=== PATIENT | female | born 1950 | race African-American/Black ===

== ENCOUNTER → 2018-05-19 | Outpatient (CLI) | payer OTHER ==
[2018-05-19 15:50] LABS: BASO % 1 % (0-3); EOS # 0.2 x10^3/uL (0.0-0.7); EOS % 3 % (0-3); HEMATOCRIT 44.6 % (36.0-47.0); LYMPH # 2.4 x10^3/uL (1.0-4.8); LYMPH % 36 % (24-48); MEAN CORPUSCULAR HEMOGLOBIN 28 pg (25-35); MEAN CORPUSCULAR HGB CONC 34 g/dL (31-37); MEAN CORPUSCULAR VOLUME 85 fL (79-100); MONO # 0.5 x10^3/uL (0.0-1.1); MONO % 7 % (0-9); NEUT # 3.5 x10^3uL (1.8-7.7); NEUT % 53 % (31-73); PLATELET COUNT 263 x10^3/uL (140-400); RED BLOOD COUNT 5.28 x10^6/uL (3.50-5.40); RED CELL DISTRIBUTION WIDTH 15.1 % (11.5-14.5); WHITE BLOOD COUNT 6.6 x10^3/uL (4.0-11.0)
[2018-05-19 16:02] LABS: ALBUMIN 4.4 g/dL (3.4-5.0); CALCIUM 9.5 mg/dL (8.5-10.1); CREATININE 0.9 mg/dL (0.6-1.0); POTASSIUM 4.3 mmol/L (3.5-5.1); TOTAL BILIRUBIN 0.2 mg/dL (0.2-1.0); TOTAL PROTEIN 8.8 g/dL (6.4-8.2)
[2018-05-19 16:03] LABS: CHOLESTEROL/HDL RATIO 5.3
[2018-05-19 16:09] LABS: FREE T4 0.75 ng/dL (0.76-1.46); THYROID STIM HORMONE (TSH) 2.587 uIU/mL (0.358-3.74)
[2018-05-21 11:15] LABS: HCV ULTRA QUANT PCR HCV Not Detected IU/mL (.)
== END | disposition home or self-care (01) ==
LOC: LAB 15:05
DX: Z01.411 Encounter for gynecological examination (general) (routine) with abnormal findings (principal); B18.2 Chronic viral hepatitis C; Z20.2 Contact with and (suspected) exposure to infections with a predominantly sexual mode of transmission
CPT/HCPCS: 80053; 80061; 84439; 84443; 85025; 86592; 86703; 86705; 86709; 86803; 87340; 87521

== ENCOUNTER 2018-12-08 00:22 | Emergency (ER) | payer OTHER ==
[~2018-12-08] VITALS: Ht 154.9 cm; Wt 72.6 kg
[2018-12-08 00:46] LABS: BASO # 0.1 x10^3/uL (0.0-0.2); BASO % 1 % (0-3); EOS # 0.1 x10^3/uL (0.0-0.7); EOS % 2 % (0-3); HEMOGLOBIN 13.3 g/dL (12.0-15.5); LYMPH # 3.3 x10^3/uL (1.0-4.8); LYMPH % 38 % (24-48); MEAN CORPUSCULAR HEMOGLOBIN 27 pg (25-35); MEAN CORPUSCULAR HGB CONC 33 g/dL (31-37); MEAN CORPUSCULAR VOLUME 85 fL (79-100); MONO # 0.7 x10^3/uL (0.0-1.1); MONO % 8 % (0-9); NEUT # 4.3 x10^3uL (1.8-7.7); NEUT % 51 % (31-73); PLATELET COUNT 222 x10^3/uL (140-400); RED BLOOD COUNT 4.86 x10^6/uL (3.50-5.40); RED CELL DISTRIBUTION WIDTH 14.3 % (11.5-14.5); WHITE BLOOD COUNT 8.5 x10^3/uL (4.0-11.0)
[2018-12-08] MEDS ORDERED: UNABLE MC (00:50)
[2018-12-08] MEDS ORDERED: MOME13HF IH (00:51)
[2018-12-08] MEDS ORDERED: ALBU2.5V8 INH (00:51)
[2018-12-08] MEDS ORDERED: ALBU2.5V8 IH (00:52)
[2018-12-08] MEDS ORDERED: TIOT18CA IH (00:52)
[2018-12-08 01:00] LABS: CALCIUM 9.6 mg/dL (8.5-10.1); CREATININE 0.7 mg/dL (0.6-1.0); GFR 101.3; POTASSIUM 3.8 mmol/L (3.5-5.1)
[2018-12-08] MEDS ORDERED: methylPREDNISolone SOD SUCC PF 125 MG/2 ML VIAL. IV ONE (01:00)
[2018-12-08] MEDS ORDERED: IV NORMAL SALINE 1000ML BAG 1,000 ML IV SCH (01:00)
[2018-12-08 01:07] LABS: ALBUMIN 3.5 g/dL (3.4-5.0); ALBUMIN/GLOBULIN RATIO 0.8 (1.0-1.7); TOTAL BILIRUBIN 0.3 mg/dL (0.2-1.0); TOTAL PROTEIN 8.1 g/dL (6.4-8.2)
--- NOTE | 2018-12-08 02:11 | PHYS DOC ---
Past Medical History Past Medical History: COPD, GERD, Hypertension, Other Additional Past Medical Histor: "stomache ulcers" hep c w treatment per pt, "liver cirosis" Past Surgical History: No Surgical History Additional Past Surgical Histo: "some bx" Alcohol Use: None Additional Information: denies Drug Use: Cocaine Social History Narrative: last used 12/05/2018 Adult General Chief Complaint Chief Complaint: SHORTNESS OF BREATH HPI HPI Patient is a 68-year-old female who presents with complaint of shortness of breath and cough for the last couple of days. Patient states that she has a history of COPD and states that she has used a total of 6 breathing treatments at home. Patient states that she just feels like she isn't getting better. She does admit to having used cocaine earlier today and states that she is feeling anxious. She denies any chest pain. She states that her shortness of breath is worsened with exertion. She does indicate that her cough is been a little bit productive of clear colored sputum. She denies fever. Review of Systems Review of Systems Constitutional: Denies fever or chills [] Respiratory: Complains of cough and shortness of breath [] Cardiovascular: No additional information not addressed in HPI [] GI: Denies abdominal pain, nausea, vomiting or diarrhea [] Neurologic: Denies headache, focal weakness or sensory changes [] All other systems were reviewed and found to be within normal limits, except as documented in this note. Current Medications Current Medications Current Medications Medications (Trade) Dose Ordered Sig/Jasvir Start Time Stop Time Status Last Admin Dose Admin Lorazepam (Ativan) 1 mg 1X ONCE 12/08/18 01:00 12/08/18 01:01 DC 12/08/18 01:23 1 MG Methylprednisolone Sodium Succinate (SOLU-Medrol 125MG VIAL) 125 mg 1X ONCE 12/08/18 01:00 12/08/18 01:01 DC 12/08/18 01:23 125 MG Sodium Chloride 1,000 ml @ 100 mls/hr Q10H 12/08/18 01:00 12/08/18 10:59 12/08/18 01:22 100 MLS/HR Allergies Allergies Allergies Coded Allergies Type Severity Reaction Last Updated Verified Penicillins Allergy Intermediate "makes my legs rubber" 12/08/18 Yes Physical Exam Physical Exam Constitutional: Well developed, well nourished, no acute distress, non-toxic appearance. [] HENT: Normocephalic, atraumatic, bilateral external ears normal, oropharynx moist, no oral exudates, nose normal. [] Eyes: PERRLA, EOMI, conjunctiva normal, no discharge. [] Neck: Normal range of motion, no tenderness, supple, no stridor. [] Cardiovascular: Regular rate and rhythm[] Lungs & Thorax: Bilateral breath sounds clear to auscultation [] Abdomen: Bowel sounds normal, soft, no tenderness. [] Skin: Warm, dry, no erythema, no rash. [] Extremities: No tenderness, no cyanosis, no clubbing, ROM intact. [] Neurologic: Alert and oriented X 3, no focal deficits noted. [] Current Patient Data Vital Signs Vital Signs Date Time Temp Pulse Resp B/P (MAP) Pulse Ox O2 Delivery O2 Flow Rate FiO2 12/08/18 00:23 98.8 65 24 197/97 (130) 100 Room Air 98.8 Lab Values Laboratory Tests Test 12/08/18 00:35 White Blood Count 8.5 x10^3/uL (4.0-11.0) Red Blood Count 4.86 x10^6/uL (3.50-5.40) Hemoglobin 13.3 g/dL (12.0-15.5) Hematocrit 41.0 % (36.0-47.0) Mean Corpuscular Volume 85 fL (79-100) Mean Corpuscular Hemoglobin 27 pg (25-35) Mean Corpuscular Hemoglobin Concent 33 g/dL (31-37) Red Cell Distribution Width 14.3 % (11.5-14.5) Platelet Count 222 x10^3/uL (140-400) Neutrophils (%) (Auto) 51 % (31-73) Lymphocytes (%) (Auto) 38 % (24-48) Monocytes (%) (Auto) 8 % (0-9) Eosinophils (%) (Auto) 2 % (0-3) Basophils (%) (Auto) 1 % (0-3) Neutrophils # (Auto) 4.3 x10^3uL (1.8-7.7) Lymphocytes # (Auto) 3.3 x10^3/uL (1.0-4.8) Monocytes # (Auto) 0.7 x10^3/uL (0.0-1.1) Eosinophils # (Auto) 0.1 x10^3/uL (0.0-0.7) Basophils # (Auto) 0.1 x10^3/uL (0.0-0.2) Sodium Level 142 mmol/L (136-145) Potassium Level 3.8 mmol/L (3.5-5.1) Chloride Level 106 mmol/L (98-107) Carbon Dioxide Level 25 mmol/L (21-32) Anion Gap 11 (6-14) Blood Urea Nitrogen 12 mg/dL (7-20) Creatinine 0.7 mg/dL (0.6-1.0) Estimated GFR (Cockcroft-Gault) 101.3 BUN/Creatinine Ratio 17 (6-20) Glucose Level 96 mg/dL (70-99) Calcium Level 9.6 mg/dL (8.5-10.1) Total Bilirubin 0.3 mg/dL (0.2-1.0) Aspartate Amino Transferase (AST) 17 U/L (15-37) Alanine Aminotransferase (ALT) 16 U/L (14-59) Alkaline Phosphatase 76 U/L (46-116) Total Protein 8.1 g/dL (6.4-8.2) Albumin 3.5 g/dL (3.4-5.0) Albumin/Globulin Ratio 0.8 (1.0-1.7) L Laboratory Tests 12/08/18 00:35 Laboratory Tests 12/08/18 00:35 EKG EKG [] Interpretation Time: EKG demonstrates normal sinus rhythm with rate of 58. Radiology/Procedures Radiology/Procedures [] Impressions: Chest x-ray demonstrates no acute process. Course & Med Decision Making Course & Med Decision Making Pertinent Labs and Imaging studies reviewed. (See chart for details) [] Dragon Disclaimer Dragon Disclaimer This electronic medical record was generated, in whole or in part, using a voice recognition dictation system. Departure Departure Impression: Primary Impression: Dyspnea Additional Impressions: Cocaine abuse Anxiety Disposition: 01 HOME, SELF-CARE Condition: STABLE Referrals: MARIANA DELEON (PCP) Patient Instructions: Anxiety and Panic Attacks, Cocaine Abuse-Brief, Shortness of Breath Problem Qualifiers Primary Impression: Dyspnea Dyspnea type: unspecified Qualified Codes: R06.00 - Dyspnea, unspecified ARCELIA EASTMAN Jr. DO Dec 08, 2018 02:11
--- NOTE | 2018-12-08 02:20 | RAD ---
Indication:cough TECHNIQUE:Portable AP chest X-ray COMPARISON:None FINDINGS: Heart is normal in size. Prominent bilateral bronchial markings. No focal consolidation. No pneumothorax or pleural effusion. Visualized bony thorax within normal limits. IMPRESSION: Findings of bronchitis. Electronically signed by: Anthony Gutierrez DO (12/08/2018 2:18 AM) [facility]
[2018-12-08 03:00] VITALS: BP 125/64
--- NOTE | 2018-12-08 06:18 | EKG ---
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
== END 2018-12-08 03:27 | disposition home or self-care (01) ==
LOC: ER 00:22
DX: F14.20 Cocaine dependence, uncomplicated (principal); R06.09 Other forms of dyspnea; F41.9 Anxiety disorder, unspecified; R05 Cough; J44.9 Chronic obstructive pulmonary disease, unspecified; K21.9 Gastro-esophageal reflux disease without esophagitis; I10 Essential (primary) hypertension; Z88.0 Allergy status to penicillin
CPT/HCPCS: 36415; 71045; 80053; 85025; 93005; 96374; 96375; 99284; J2060; J2930; J7030

== ENCOUNTER 2021-02-23 14:13 | Emergency (ER) | payer OTHER ==
[~2021-02-23] VITALS: Ht 170.2 cm; Wt 68.1 kg
[~2021-02-23 14:13] MED LIST: ALBU2.5V8 INH; MOME13HF IH; PROVENTIL HFA6.7 GM IH; TIOT18CA IH; UNABLE MC
--- NOTE | 2021-02-23 16:28 | PHYS DOC ---
Past Medical History Past Medical History: COPD, GERD, Hypertension, Other Additional Past Medical Histor: "stomache ulcers" hep c w treatment per pt, "liver cirosis" Past Surgical History: No Surgical History Additional Past Surgical Histo: "some bx" Smoking Status: Current Every Day Smoker Alcohol Use: None Drug Use: Cocaine General Adult EDM: Chief Complaint: COUGH HPI: HPI: 70-year-old AA female past medical history of COPD w/tobacco dependence, hep C/cirrhosis and PSA presents to the ED with complaints of " having congestion in the nose and chest for the past 2 weeks, is not getting any better, I think there is something in my building triggering me." Reports history of tobacco smoke, marijuana use and recent cocaine abuse around 3am. No known history of Covid. Is uncertain about getting the Covid vaccine. States she has not had steroids in the past few years for her COPD. Has never been admitted for her COPD. Denies any hemoptysis, difficulties breathing, increased work of breathing, chest pain or syncope. Review of Systems: Review of Systems: Constitutional: Denies fever or chills. [] Eyes: Denies change in visual acuity. [] HENT: Denies rhinorrhea or sore throat. [] Respiratory: Denies increased work of breathing or hemoptysis Cardiovascular: Denies chest pain or edema. [] GI: Denies abdominal pain, nausea, vomiting, bloody stools or diarrhea. [] : Denies dysuria or hematuria Musculoskeletal: Denies back pain or joint pain. [] Integument: Denies rash or diaphoresis Neurologic: Denies headache, focal weakness or sensory changes. [] Endocrine: Denies polyuria or polydipsia. [] Lymphatic: Denies swollen glands or lack of taste/smell Psychiatric: Denies depression or anxiety. [] Heart Score: C/O Chest Pain: No Risk Factors: Risk Factors: DM, Current or recent (<one month) smoker, HTN, HLP, family history of CAD, obesity. Risk Scores: Score 0 - 3: 2.5% MACE over next 6 weeks - Discharge Home Score 4 - 6: 20.3% MACE over next 6 weeks - Admit for Clinical Observation Score 7 - 10: 72.7% MACE over next 6 weeks - Early Invasive Strategies Allergies: Allergies: Allergies Coded Allergies Type Severity Reaction Last Updated Verified Penicillins Allergy Intermediate "makes my legs rubber" 3/14/19 Yes Physical Exam: PE: Constitutional: Well developed, well nourished, no acute distress-sleeping in ED room, non-toxic appearance. HENT: Normocephalic, atraumatic, Eyes: EOMI, conjunctiva normal, no discharge. Neck: Normal range of motion, supple, Cardiovascular: S1/2 present, regular rhythm, no murmurs Lungs & Thorax: Speaking in full sentences, bilateral equal chest rise, no tachypnea or increased work of breathing, no wheezing/rales/crackles Abdomen: soft, no tenderness, Skin: Warm, dry, no erythema, no rash. [] Back: No midline tenderness, no CVA tenderness. [] Extremities: No tenderness, no cyanosis, no unilateral lower extremity edema Neurologic: Alert and oriented X 3, normal motor function, normal sensory function, no focal deficits noted. [] Psychologic: Affect normal, judgement normal, mood normal. [] EKG: EKG: Sinus rhythm at 56 bpm, no axis deviation, normal intervals, no T wave inversions, no ST elevations or ST depressions Radiology/Procedures: Radiology/Procedures: IMAGING REPORT Signed PATIENT: KENNETH YOUNG ACCOUNT: [id number] : 1950 LOCATION: ER AGE: 70 SEX: F EXAM STATUS: REG ER ORD. PHYSICIAN: PUJA HANNA DO REASON: cough PROCEDURE: PORTABLE CHEST 1V XR CHEST 1V Clinical History: Reason: cough / Spl. Instructions: / History: Technique: AP view of the chest was obtained at 02/23/2021 5:08 PM. Comparison: December 08, 2018. Findings: The cardiomediastinal silhouette is normal. The pulmonary vasculature is normal. Reticular opacities scattered the lungs are seen previously but appear increased in the left lung base. Impression: Interstitial opacities suggesting possible atypical pneumonia superimposed on chronic pulmonary fibrosis. Electronically signed by: See Kwok III, MD (02/23/2021 5:25 PM) [facility] DICTATED and SIGNED BY: SEE KWOK III, MD DATE: 02/23/21 [id number] 0 Course & Med Decision Making: Course & Med Decision Making Pertinent Labs and Imaging studies reviewed. (See chart for details) COVID-19 CRITERIA: The patient was evaluated during the global COVID-19 pandemic, and that diagnosis was suspected/considered upon their initial presentation. Their evaluation, treatment and testing was consistent with current guidelines for patients who present with complaints or symptoms that may be related to COVID-19. Concern for atypical pneumonia in the setting of COPD with no wheezing, Covid on differential with test pending. Patient resting comfortably in ED is sleeping with no respiratory distress. Prescribed Z-Stuart. Fosfomycin given in ED for urinary tract infection. Patient does not meet sepsis criteria, is hemodynamically stable with no tachycardia or difficulties breathing. Will discharge home with strict ED return precautions were given for neurologic deficits, difficulties breathing, hemoptysis, chest pain or syncope. Encouraged urgent outpatient follow-up with PMD and pulmonology for definitive management. Life-threatening processes were considered but are low suspicion at this time, given history, physical exam and ED workup. Pt was educated on all prescription medications and adverse effects. All patient's questions were answered and pt was stable at time of discharge. Life/limb-threatening differential includes but is not limited to, foreign body, infection/sepsis, congestive heart failure or pulmonary edema, lung cancer intrathoracic mass, bronchoconstriction, asthma/COPD/lung disease exacerbation, pneumothorax or hemothorax, pulmonary emboli, autoimmune/neurologic disease or toxidrome. I spoken with the patient and her caregivers. I explained the patient's condition, diagnoses and treatment plan based on the information available to me at this time. I have answered the patient and her caregiver's questions and addressed any concerns. The patient and her caregivers have a good understanding of patient's diagnosis, condition and treatment plan as can be expected at this point. Vital signs have been stable. Patient's condition is stable and appropriate for discharge from the emergency department. Patient will pursue further outpatient evaluation with primary care physician or other designated or consulting physician as outlined in the discharge instructions. The patient and/or caregivers are agreeable to this plan of care and follow-up instructions have been explained in detail. The patient and/or caregivers have received these instructions in written form and have expressed an understanding of the discharge instructions. The patient and/or caregivers are aware that any significant change of condition or worsening of symptoms should prompt immediate return to this or the closest emergency department or call to 911. Miles Disclaimer: Miles Disclaimer: This electronic medical record was generated, in whole or in part, using a voice recognition dictation system. Departure Departure Impression: Primary Impression: Cough Additional Impressions: Person under investigation for COVID-19 Atypical pneumonia UTI (urinary tract infection) Disposition: 01 HOME / SELF CARE / HOMELESS Condition: STABLE Referrals: MARIANA DELEON (PCP) Follow-up with your primary care physician in 24 to 48 hours for reevaluation Patient Instructions: Cough, Adult, Pneumonia, Adult, Urinary Tract Infection Additional Instructions: Return to ED immediately if your oxygen level drops below 90% (purchase a pulse oximetry at a medical supply store), difficulties breathing including rapid breathing or increased work of breathing (skin sucking under ribs), chest pain or stroke-like symptoms (facial droop, speech changes, arm/leg weakness). FOLLOW UP WITH PULMONOLOGY: For definitive management of [facility] [address] [place] [address] You have been tested for or diagnosed with COVID-19. It is an infection caused by a new type of coronavirus. COVID-19 will cause cold-like or mild flu symptoms in most. It can cause more severe symptoms like problems breathing in some. There is no treatment for COVID-19. The body will clear the infection over time. Self-care will help to ease discomfort. Steps to Take: Self-Care Rest as needed. Healthy habits may help you feel better. Steps include: Choose healthy foods including fruits and vegetables. Drink water throughout the day. Get plenty of sleep each night. If you smoke, try to quit. It may ease breathing. Avoid alcohol. Keep Others Healthy The virus can spread to others. Droplets are released every time you sneeze or cough. The droplets can get into the mouth, nose, or eyes of people near you and lead to infection. To lower the chances of spreading COVID-19 to others: Stay at home until your doctor has said it is safe to leave. If you tested positive this will mean staying isolated until both of the following are true: At least 7 days have passed since the start of illness. You are free of fever for at least 72 hours without the use of medicine. During this time: - Avoid public areas, events, or transportation. Do not return to work or school until your doctor has said it is safe to do so. - Call ahead if you need to go to a medical center. Let them know you may have COVID-19. It will help them guide you where to go. They may also ask you to wear a facemask when you come to the office. - If you call for emergency medical services, let them know you may have COVID- 19. While at home: - Try to avoid close contact with others. Stay about 6 feet away. - If possible, spend most of your time in a separate room from others. - Use a face mask if you will be in close contact with others such as sharing a room or vehicle. - Have someone wipe down common surfaces in the home. Use household ergonomics consultant every day on areas like doorknobs, counters, or sinks. - Cough or sneeze into a tissue. Throw the tissue away right after use. If a tissue is not available, cough or sneeze into your elbow. - Wash your hands often. Wash them after sneezing or coughing. Use soap and water and wash for at least 20 seconds. Alcohol based hand guide rail cleaner can be used if soap and water is not available. - Do not prepare food for others. Avoid sharing personal items like forks, spoons, or toothbrushes. - Avoid close contact with pets while you are sick. There is no evidence of the virus passing to pets. This is a safety step until more is known about this virus. Isolation can be frustrating. Social interaction can help. Keep in touch with friends and family through phone and tech options. You can still interact with others in your home, just keep a safe distance of about 6 feet. Follow-up: Your doctors office will check in with you to see if there are any changes in your health. You may be asked to keep track of symptoms to share with them. They will also let you know when you are clear to be in public again. Problems to Look Out For: Contact your doctor if your recovery is not going as you expect. Get emergency care if you have problems such as: - Trouble breathing - Nonstop chest pain or pressure - Changes in awareness, confusion, or problems waking - Lips or face have bluish color - Worsening of symptoms If you think you have an emergency, call for emergency medical services right away. [facility] Azithromycin (ZITHROMAX) 250 Mg Tablet 250 MG PO as directed for ANTI-BIOTIC, #6 TAB 0 Refills Take 2 PO x 1 days Then take 1 PO q 24 hour for the next 4 days Prov: PUJA HANNA DO 02/23/21 PUJA HANNA DO February 23, 2021 16:28
[2021-02-23 16:46] LABS: BASO # 0.1 x10^3/uL (0.0-0.2); BASO % 1 % (0-3); EOS # 0.3 x10^3/uL (0.0-0.7); EOS % 3 % (0-3); HEMATOCRIT 44.2 % (36.0-47.0); HEMOGLOBIN 14.9 g/dL (12.0-15.5); LYMPH % 32 % (24-48); MEAN CORPUSCULAR HEMOGLOBIN 28 pg (25-35); MEAN CORPUSCULAR HGB CONC 34 g/dL (31-37); MEAN CORPUSCULAR VOLUME 84 fL (79-100); MONO # 0.8 x10^3/uL (0.0-1.1); MONO % 9 % (0-9); NEUT # 5.3 x10^3/uL (1.8-7.7); NEUT % 56 % (31-73); PLATELET COUNT 284 x10^3/uL (140-400); RED CELL DISTRIBUTION WIDTH 14.9 % (11.5-14.5); WHITE BLOOD COUNT 9.4 x10^3/uL (4.0-11.0)
[2021-02-23 17:04] LABS: ALK PHOS 99 U/L (46-116); ALT (SGPT) 25 U/L (14-59); ANION GAP 8 (6-14); AST (SGOT) 20 U/L (15-37); BLOOD UREA NITROGEN 15 mg/dL (7-20); CALCIUM 9.3 mg/dL (8.5-10.1); CARBON DIOXIDE 27 mmol/L (21-32); CHLORIDE 107 mmol/L (98-107); CREATINE KINASE 96 U/L (26-192); CREATININE 0.7 mg/dL (0.6-1.0); DIRECT BILIRUBIN < 0.1 mg/dL (0.0-0.2); GFR 100.7; GLUCOSE 97 mg/dL (70-99); SODIUM 142 mmol/L (136-145); TOTAL BILIRUBIN 0.2 mg/dL (0.2-1.0)
--- NOTE | 2021-02-23 17:05 | EKG ---
[facility] [address] [place] [address] Test Date: 2021-02-23 Test Time: 16:09:41 Pat Name: KENNETH YOUNG Department: Room: Gender: F Clinic Administrator: : 1950 Requested By: PUJA HANNA Order Number: [id number] Reading MD: Cliff Anderson Measurements Intervals [place] Rate: 56 P: 63 VA: 146 QRS: 21 QRSD: 68 T: 60 QT: 428 QTc: 416 Interpretive Statements SINUS RHYTHM QRS(T) CONTOUR ABNORMALITY CONSISTENT WITH ANTEROSEPTAL INFARCT PROBABLY OLD ABNORMAL ECG Electronically Signed On 02-25-2021 15:06:33 CDT by Cliff Anderson
[2021-02-23 17:12] LABS: BILIRUBIN,URINE NEGATIVE (NEG); CLARITY,URINE CLEAR; COLOR,URINE YELLOW; NITRITE,URINE POSITIVE (NEG); PH,URINE 6.5 (<5.0-8.0); PROTEIN,URINE NEGATIVE (NEG-TRACE)
[2021-02-23 17:20] LABS: BACTERIA,URINE MANY /HPF (0-FEW)
[2021-02-23 17:21] LABS: RBC,URINE 0 /HPF (0-2)
--- NOTE | 2021-02-23 17:28 | RAD ---
XR CHEST 1V Clinical History: Reason: cough / Spl. Instructions: / History: Technique: AP view of the chest was obtained at 02/23/2021 5:08 PM. Comparison: December 08, 2018. Findings: The cardiomediastinal silhouette is normal. The pulmonary vasculature is normal. Reticular opacities scattered the lungs are seen previously but appear increased in the left lung base. Impression: Interstitial opacities suggesting possible atypical pneumonia superimposed on chronic pulmonary fibro sis. Electronically signed by: Shlomo Sal III, MD (02/23/2021 5:25 PM) [facility]
[2021-02-23] MEDS ORDERED: AZIT250T PO (17:39)
[2021-02-23 18:24] VITALS: BP 106/58
[2021-02-23] MEDS ORDERED: FOSFOMYCIN TROMETHAMINE 3 GM PACKET PO ONE (19:00)
== END 2021-02-23 18:58 | disposition home or self-care (01) ==
LOC: ER 14:13
DX: J18.9 Pneumonia, unspecified organism (principal); Z20.822 Contact with and (suspected) exposure to COVID-19; N39.0 Urinary tract infection, site not specified; J44.9 Chronic obstructive pulmonary disease, unspecified; K21.9 Gastro-esophageal reflux disease without esophagitis; I10 Essential (primary) hypertension; F17.200 Nicotine dependence, unspecified, uncomplicated; Z88.0 Allergy status to penicillin
CPT/HCPCS: 36415; 71045; 80048; 80076; 81001; 82550; 83880; 84484; 85025; 87086; 93005; 99285-25

== ENCOUNTER 2021-07-29 21:50 | Emergency (ER) | payer OTHER ==
[~2021-07-29] VITALS: Ht 167.6 cm; Wt 75.3 kg
[~2021-07-29 21:50] MED LIST changes: +AZIT250T PO
--- NOTE | 2021-07-29 23:56 | PHYS DOC ---
Past Medical History Past Medical History: COPD, GERD, Hypertension, Other Additional Past Medical Histor: "stomach ulcers" hep c, "liver cirosis" COCAINE USE & IV DRUG USER Past Surgical History: No Surgical History Additional Past Surgical Histo: "some bx" Smoking Status: Current Every Day Smoker Alcohol Use: None Drug Use: Cocaine General Adult EDM: Chief Complaint: ABDOMINAL PAIN HPI: HPI: Patient is a 70 year old female who present to ER for evaluation of epigastric abdominal pain has been going on for 1 month. Patient feels like her belly is bloated. Patient has history of acid reflux, patient ran out of her antacid medication 2 weeks ago. Patient feels nauseous but no vomiting. Patient denies any chest pain, no cough, no fever. Patient denies any constipation, diarrhea problem. Review of Systems: Review of Systems: Constitutional: Denies fever or chills. [] Eyes: Denies change in visual acuity. [] HENT: Denies nasal congestion or sore throat. [] Respiratory: Denies cough or shortness of breath. [] Cardiovascular: Denies chest pain or edema. [] GI: Positive for abdominal pain, nausea, no vomiting, no diarrhea, no constipation : Denies dysuria. [] Musculoskeletal: Denies back pain or joint pain. [] Integument: Denies rash. [] Neurologic: Denies headache, focal weakness or sensory changes. [] Endocrine: Denies polyuria or polydipsia. [] Lymphatic: Denies swollen glands. [] Psychiatric: Denies depression or anxiety. [] Heart Score: C/O Chest Pain: N/A Risk Factors: Risk Factors: DM, Current or recent (<one month) smoker, HTN, HLP, family history of CAD, obesity. Risk Scores: Score 0 - 3: 2.5% MACE over next 6 weeks - Discharge Home Score 4 - 6: 20.3% MACE over next 6 weeks - Admit for Clinical Observation Score 7 - 10: 72.7% MACE over next 6 weeks - Early Invasive Strategies Allergies: Allergies: Allergies Coded Allergies Type Severity Reaction Last Updated Verified Penicillins Allergy Intermediate "makes my legs rubber" 12/08/18 Yes Physical Exam: PE: Constitutional: Well developed, well nourished, no acute distress, non-toxic appearance. [] HENT: Normocephalic, atraumatic, bilateral external ears normal, oropharynx moist, no oral exudates, nose normal. [] Eyes: PERRLA, EOMI, conjunctiva normal, no discharge. [] Neck: Normal range of motion, no tenderness, supple, no stridor. [] Cardiovascular:Heart rate regular rhythm, no murmur [] Lungs & Thorax: Bilateral breath sounds clear to auscultation [] Abdomen: Bowel sounds normal, soft, diffuse distention, epigastric tenderness to to palpation, no masses, no pulsatile masses. [] Skin: Warm, dry, no erythema, no rash. [] Back: No tenderness, no CVA tenderness. [] Extremities: No tenderness, no cyanosis, no clubbing, ROM intact, no edema. [] Neurologic: Alert and oriented X 3, normal motor function, normal sensory function, no focal deficits noted. [] Psychologic: Affect normal, judgement normal, mood normal. [] Current Patient Data: Labs: Laboratory Tests Test 07/30/21 00:40 07/30/21 02:00 White Blood Count 9.6 x10^3/uL Red Blood Count 5.25 x10^6/uL Hemoglobin 14.7 g/dL Hematocrit 44.2 % Mean Corpuscular Volume 84 fL Mean Corpuscular Hemoglobin 28 pg Mean Corpuscular Hemoglobin Concent 33 g/dL Red Cell Distribution Width 15.0 % Platelet Count 193 x10^3/uL Neutrophils (%) (Auto) 47 % Lymphocytes (%) (Auto) 42 % Monocytes (%) (Auto) 8 % Eosinophils (%) (Auto) 3 % Basophils (%) (Auto) 1 % Neutrophils # (Auto) 4.5 x10^3/uL Lymphocytes # (Auto) 4.0 x10^3/uL Monocytes # (Auto) 0.8 x10^3/uL Eosinophils # (Auto) 0.2 x10^3/uL Basophils # (Auto) 0.0 x10^3/uL Sodium Level 140 mmol/L Potassium Level 3.9 mmol/L Chloride Level 107 mmol/L Carbon Dioxide Level 24 mmol/L Anion Gap 9 Blood Urea Nitrogen 16 mg/dL Creatinine 0.7 mg/dL Estimated GFR (Cockcroft-Gault) 100.7 BUN/Creatinine Ratio 23 Glucose Level 115 mg/dL Calcium Level 8.8 mg/dL Magnesium Level 2.0 mg/dL Total Bilirubin 0.2 mg/dL Aspartate Amino Transf (AST/SGOT) 17 U/L Alanine Aminotransferase (ALT/SGPT) 23 U/L Alkaline Phosphatase 80 U/L Total Protein 7.6 g/dL Albumin 3.3 g/dL Albumin/Globulin Ratio 0.8 Lipase 50 U/L Current Medications Medications (Trade) Dose Ordered Sig/Jasvir Route PRN Reason Start Time Stop Time Status Last Admin Dose Admin Iohexol (Omnipaque 300 Mg/ml) 75 ml 1X ONCE IV 07/30/21 02:30 07/30/21 02:31 DC 07/30/21 02:51 Info (CONTRAST GIVEN -- Rx MONITORING) 1 each PRN DAILY PRN MC SEE COMMENTS 07/30/21 02:30 08/01/21 02:29 Famotidine (Pepcid) 20 mg 1X ONCE PO 07/30/21 03:30 07/30/21 03:31 UNV Multi-Ingredient Mouthwash/Gargle (Gi Cocktail) 20 ml 1X ONCE SWSW 07/30/21 03:30 07/30/21 03:31 UNV EKG: EKG: [] Radiology/Procedures: Radiology/Procedures: [facility] [address] [place], [place] [id number] IMAGING REPORT Signed PATIENT: WU YOUNG ACCOUNT: [id number] : 1950 LOCATION: ER AGE: 70 SEX: F EXAM STATUS: REG ER ORD. PHYSICIAN: MARITZA ZHENG DO REASON: ABDOMINAL PAIN, ABDOMINAL DISTENTION;OMNI 300, 75ML PROCEDURE: CT ABD PELV W/ IV CONTRST ONLY PQRS Compliance Statement: One or more of the following individualized dose reduction techniques were utilized for this examination: 1. Automated exposure control 2. Adjustment of the mA and/or kV according to patient size 3. Use of iterative reconstruction technique CT abdomen/pelvis with contrast 07/30/2021 2:26 AM INDICATION: Abdominal pain and distention COMPARISON: None available TECHNIQUE: Multiple axial CT images of the abdomen and pelvis were obtained after the intravenous administration of 75 mL Omnipaque 300. Coronal and sagittal reformats are provided. FINDINGS: Bibasilar subsegmental atelectasis. Heart size is within normal limits. Liver, spleen, right adrenal gland and pancreas are normal in appearance. Gallbladder present without adjacent inflammation. Mild prominence of the main pancreatic duct measuring up to 3 mm. Common bile duct measures up to 9 mm. Fusiform thickening of the left adrenal gland may represent adenomatous hyperplasia. The abdominal aorta is normal in course and caliber. There are no pathologically enlarged lymph nodes in the abdomen and pelvis. There is no abdominal free fluid. There is no free intraperitoneal air. The kidneys enhance symmetrically. There is no suspicious renal mass. There is no hydronephrosis. There are no suspected calculi within the kidneys, ureters or urinary bladder. Small and large bowel are normal in caliber. There is no evidence for bowel obstruction. There are no pericolonic inflammatory changes. A normal, nondilated appendix is visualized without adjacent inflammatory changes. Mild rectal distention with stool. Urinary bladder is within normal limits given degree of distention. No suspicious pelvic mass. Uterus and adnexa are normal by CT. No suspicious osseous abnormality is identified. Grade 1 anterolisthesis of L5 on S1 with no definite pars defect. IMPRESSION: No acute abnormality is identified in abdomen and pelvis as detailed above. Electronically signed by: Nicholas Parekh MD (07/30/2021 3:03 AM) [facility] DICTATED and SIGNED BY: NICHOLAS PAREKH MD DATE: 07/30/21 [id number] 0 Course & Med Decision Making: Course & Med Decision Making Pertinent Labs and Imaging studies reviewed. (See chart for details) Patient is a 70-year-old female who presented to ER due to abdominal pain, patient has history of acid reflux, she ran out of her antacid medication. Her lab work and a CT scan of abdomen pelvis did not show any acute problem. Patient will be discharged home with diagnosis of gastritis. Dragon Disclaimer: Dragon Disclaimer: This electronic medical record was generated, in whole or in part, using a voice recognition dictation system. Departure Departure Impression: Primary Impression: Gastritis Additional Impression: Abdominal pain Disposition: 01 HOME / SELF CARE / HOMELESS Condition: IMPROVED Referrals: MARIANA DELEON (PCP) Follow up with your doctor this week for reevaluation Patient Instructions: Abdominal Pain (Nonspecific), Gastritis, Adult Additional Instructions: Thank you for visiting our Emergency Department. We appreciate you trusting us with your care. If any additional problems come up don't hesitate to return to visit us. Please follow up with your primary care provider so they can plan additional care if needed and know about the problem that you had. If symptoms worsen come back to the Emergency Department. Any concerning symptoms that start such as chest pain, shortness of air, weakness or numbness on one side of the body, running high fevers or any other concerning symptoms return to the ER. Scripts Omeprazole Magnesium (PRILOSEC OTC) 20 Mg Tablet. 1 TAB PO DAILY for 30 Days, #30 TAB 0 Refills Prov: MARITZA ZHENG DO 07/30/21 Sucralfate (CARAFATE) 1 Gm Tablet 1 TAB PO QID for 21 Days, #84 TAB 0 Refills Prov: MARITZA ZHENG DO 07/30/21 MARITZA ZHENG DO Jul 29, 2021 23:56
[2021-07-30 00:48] LABS: BASO % 1 % (0-3); EOS # 0.2 x10^3/uL (0.0-0.7); EOS % 3 % (0-3); HEMATOCRIT 44.2 % (36.0-47.0); HEMOGLOBIN 14.7 g/dL (12.0-15.5); LYMPH % 42 % (24-48); MEAN CORPUSCULAR HEMOGLOBIN 28 pg (25-35); MEAN CORPUSCULAR HGB CONC 33 g/dL (31-37); MEAN CORPUSCULAR VOLUME 84 fL (79-100); MONO # 0.8 x10^3/uL (0.0-1.1); MONO % 8 % (0-9); NEUT # 4.5 x10^3/uL (1.8-7.7); NEUT % 47 % (31-73); PLATELET COUNT 193 x10^3/uL (140-400); RED BLOOD COUNT 5.25 x10^6/uL (3.50-5.40); WHITE BLOOD COUNT 9.6 x10^3/uL (4.0-11.0)
[2021-07-30 02:19] LABS: CALCIUM 8.8 mg/dL (8.5-10.1); CREATININE 0.7 mg/dL (0.6-1.0); GFR 100.7; POTASSIUM 3.9 mmol/L (3.5-5.1)
[2021-07-30 02:24] LABS: ALBUMIN 3.3 g/dL (3.4-5.0); ALBUMIN/GLOBULIN RATIO 0.8 (1.0-1.7); TOTAL BILIRUBIN 0.2 mg/dL (0.2-1.0); TOTAL PROTEIN 7.6 g/dL (6.4-8.2)
[2021-07-30] MEDS ORDERED: IOHEXOL 300 MG/ML 100ML VIAL. IV ONE (02:30)
[2021-07-30] MEDS ORDERED: CONTRAST GIVEN. MC PRN (02:30)
--- NOTE | 2021-07-30 03:06 | RAD ---
PQRS Compliance Statement: One or more of the following individualized dose reduction techniques were utilized for this examinat ion: 1. Automated exposure control 2. Adjustment of the mA and/or kV according to patient size 3. Use of iterative reconstruction technique CT abdomen/pelvis with contrast 07/30/2021 2:26 AM INDICATION: Abdominal pain and distention COMPARISON: None available TECHNIQUE: Multiple axial CT images of the abdomen and pelvis were obtained after the intravenous adm inistration of 75 mL Omnipaque 300. Coronal and sagittal reformats are provided. FINDINGS: Bibasilar subsegmental atelectasis. Heart size is within normal limits. Liver, spleen, right adrenal gland and pancreas are normal in appearance. Gallbladder present without adjacent inflammation. Mild prominence of the main pancreatic duct measuring up to 3 mm. Common bile duct measures up to 9 mm. Fu siform thickening of the left adrenal gland may represent adenomatous hyperplasia. The abdominal aorta is normal in course and caliber. There are no pathologically enlarged lymph nodes in the abdomen and pelvis. There is no abdominal free fluid. There is no free intraperitoneal air. The kidneys enhance symmetrically. There is no suspicious renal mass. There is no hydronephrosis. The re are no suspected calculi within the kidneys, ureters or urinary bladder. Small and large bowel are normal in caliber. There is no evidence for bowel obstruction. There are no pericolonic inflammatory changes. A normal, nondilated appendix is visualized without adjacent infla mmatory changes. Mild rectal distention with stool. Urinary bladder is within normal limits given degree of distention. No suspicious pelvic mass. Uterus and adnexa are normal by CT. No suspicious osseous abnormality is identified. Grade 1 anterolisthesis of L5 on S1 with no definite pars defect. IMPRESSION: No acute abnormality is identified in abdomen and pelvis as detailed above. Electronically signed by: Valery Hunter MD (07/30/2021 3:03 AM) [facility]
[2021-07-30 03:24] VITALS: BP 167/84
[2021-07-30] MEDS ORDERED: SUCR1TAB35 PO (03:30)
[2021-07-30] MEDS ORDERED: OMEP20TA63 PO (03:30)
[2021-07-30] MEDS ORDERED: FAMOTIDINE 20 MG TABLET. PO ONE (03:30)
[2021-07-30] MEDS: LIDO:MAALOX 1:1 20 ML SINGLE DOSE. SWSW ONE ×2 (03:33→03:35)
== END 2021-07-30 03:46 | disposition home or self-care (01) ==
LOC: ER 21:50
DX: K29.70 Gastritis, unspecified, without bleeding (principal); J44.9 Chronic obstructive pulmonary disease, unspecified; K21.9 Gastro-esophageal reflux disease without esophagitis; I10 Essential (primary) hypertension; F17.200 Nicotine dependence, unspecified, uncomplicated; Z88.0 Allergy status to penicillin
CPT/HCPCS: 36415; 74177; 80053; 83690; 83735; 85025; 99285; Q9967